=== PATIENT | male | born 1960 | race Caucasian/White ===

== ENCOUNTER → 2019-01-25 | Outpatient (CLI) | payer OTHER ==
--- NOTE | 2019-01-25 12:08 | PCVCIMAG ---
APPROVED REPORT Study performed: 01/25/2019 10:02:41 Exam: Stress Echocardiogram Indication: Chest Pain Patient Location: Echo lab Stress Nurse: Tara Ch RN Status: routine Ht: 6 ft 1 in HR: 61 bpm BP: 152/82 mmHg Rhythm: NSR Medical History Medical History: Hyperlipidemia Procedure The patient underwent an Exercise Stress Test using the Abel Protocol. Blood pressure, heart rate, and EKG were monitored. An Echocardiogram was performed by information technology technician in four stages in quad fashion. At peak stress, four selected images were obtained and placed side by side with resting images for comparison. Stress Test Details Stress Test: Exercise stress testing was performed using a Abel protocol. HR Resting HR: 61 bpmMax Heart Rate (APMHR): 161 bpm Max HR Achieved: 176 bpmTarget HR (85% APMHR): 136 bpm % of APMHR: 109 Recovery HR: 103 bpm HR response to stress: Normal HR response to stress BP Resting BP: 152/82 mmHg Max BP: 220/80 mmHg Recovery BP: 170/74 mmHg BP response to stress: Abnormal hypertensive response to stress. ECG Resting ECG: Sinus Rhythm Stress ECG: Sinus Rhythm, rate-related RBBB ST Change: Normal Maximum ST Deviation: 0 mm Arrhythmia: None Recovery ECG: Sinus Rhythm Recovery ST Change: Normal Recovery ST Deviation: 0 mm Recovery Arrhythmia: None Clinical Reason for Termination: Maximal effort Exercise duration: 11 min 01 sec Highest Stage Achieved: Stage 4: 4.2 mph at 16% grade. Exercise capacity: 13.70 METs Overall Exercise Capacity for Age: Good Angina Score: None Stress ECG Conclusion ECG: Non-ischemic Clinical: Non-ischemic Perez Treadmill Score is 11.0 which is Low risk. Pre-Stress Echo The resting Echocardiogram showed normal left ventricular contractility with an estimated Ejection Fraction of about >55%. Normal wall motion in all segments on baseline images. Post-Stress Echo The stress Echocardiogram showed normal left ventricular contractility with an estimated Ejection Fraction of about 60-65%. Normal augmentation of wall motion in all segments on post stress images. Clinical No clinical or ECG evidence for ischemia. Conclusion Clinical Response: Non-ischemic Exercise Capacity: Good Stress ECG Response: Non-ischemic Stress Echo Images: Non-ischemic The left ventricle is normal in size and wall thickness in both the rest and stress images. Normal stress echocardiogram with maximal exercise stress. Hypertensive response to exercise Lisinopril 20mg daily prescription given. Close follow up through Dr. Perrin's office encouraged. Other Information Study Quality: Adequate <Conclusion> The left ventricle is normal in size and wall thickness in both the rest and stress images. Normal stress echocardiogram with maximal exercise stress. Hypertensive response to exercise Lisinopril 20mg daily prescription given. Close follow up through Dr. Perrin's office encouraged.
== END | disposition home or self-care (01) ==
LOC: PCVCIMAG 09:40
PROVIDERS: ATTEND Family Medicine
DX: R07.9 Chest pain, unspecified (principal); E78.5 Hyperlipidemia, unspecified
CPT/HCPCS: 93325; 93351